=== PATIENT | male | born 1960 | race Caucasian/White ===

== ENCOUNTER 2016-08-19 06:48 | Emergency (ER) | payer BC ==
[2016-08-19 07:50] VITALS: BP 129/70
--- NOTE | 2016-08-19 14:23 | ED ---
Cassy Hernandez Matthew, scribed for Zheng Gore MD on 08/19/16 at 0746 . Complex/Multi-Sys Presentation - HPI Summary HPI Summary: A 55 y/o male presents to the ED with a right groin sensation at 05:45 this morning, which lasted for 5-10 minutes and has since resolved. The patient was eating breakfast and reading when he felt a "funny sensation" in his right groin. Associated symptoms at that time were bilateral arm numbness, flushness, and diaphoresis all of which have resolved. PMHx includes a nephrectomy and an abdominal aneurysm, which is currently being managed by his surgeon at [facility]. The patient states that he currently feels fine and his symptoms were likely due to anxiety about his aneurysm. - History Of Current Complaint Chief Complaint: EDGeneral Time Seen by Provider: 08/19/16 07:25 Hx Obtained From: Patient Onset/Duration: Sudden Onset, Lasting Minutes, Resolved Timing: Constant Severity Currently: Mild Severity Initially: Mild Character: Unable To Describe Associated Signs And Symptoms: Positive: Diaphoresis - since resolved, Other - Flush - since resolved; arm numbness - since resolved - Allergies/Home Medications Allergies/Adverse Reactions: Allergies Allergy/AdvReac Type Severity Reaction Status Date / Time Clarithromycin [From Biaxin] Allergy Unknown Verified 08/19/16 07:04 Reaction Details PMH/Surg Hx/FS Hx/Imm Hx Cardiovascular History: Reports: Hx Aneurysm - which is being managed Psychiatric History: Reports: Hx Anxiety Infectious Disease History: No Infectious Disease History: Denies: Traveled Outside the [place] in Last 30 Days - Family History Family History: FHx of aneurysm. - Social History Alcohol Use: Rare Substance Use Type: Reports: None Smoking Status (MU): Never Smoked Tobacco Review of Systems Constitutional: Negative Eyes: Negative ENT: Negative Cardiovascular: Negative Respiratory: Negative Gastrointestinal: Negative Genitourinary: Negative Musculoskeletal: Negative Skin: Negative Neurological: Negative Psychological: Normal All Other Systems Reviewed And Are Negative: Yes Physical Exam Triage Information Reviewed: Yes Vital Signs On Initial Exam: Initial Vitals Temp Pulse Resp BP Pulse Ox 97.9 F 81 16 140/80 98 08/19/16 06:50 08/19/16 06:50 08/19/16 06:50 08/19/16 06:50 08/19/16 06:50 Vital Signs Reviewed: Yes Appearance: Positive: Well-Appearing, No Pain Distress Skin: Positive: Warm, Skin Color Reflects Adequate Perfusion, Dry Head/Face: Positive: Normal Head/Face Inspection Eyes: Positive: Normal ENT: Positive: Normal ENT inspection Neck: Positive: Supple, Nontender Respiratory/Lung Sounds: Positive: Clear to Auscultation, Breath Sounds Present Cardiovascular: Positive: RRR Abdomen Description: Positive: Nontender, Soft Bowel Sounds: Positive: Present Musculoskeletal: Positive: Normal, Other - Non-tender, 2+ pulses Neurological: Positive: Normal, Sensory/Motor Intact, Alert, Oriented to Person Place, Time Psychiatric: Positive: Normal, Affect/Mood Appropriate Diagnostics - Vital Signs Vital Signs Temp Pulse Resp BP Pulse Ox 08/19/16 07:01 80 96 08/19/16 07:00 141/74 08/19/16 06:50 97.9 F 81 16 140/80 98 - Laboratory Lab Statement: Any lab studies that have been ordered have been reviewed, and results considered in the medical decision making process. Complex Multi-Symp Course/Dx Course Of Treatment: Mr. Ferro was concerned about his pre-existing aneurysm when he presented. He was symptom-free on arrival. I could not detect any abnormality on exam. He had good pulses and was nontender without deformity. - Diagnoses Provider Diagnoses: Leg pain Discharge - Discharge Plan Condition: Stable Disposition: HOME Forms: *Gen. Provider Communication Referrals: Justine Carlisle [Other] - 2 Days Additional Instructions: Please follow-up with your primary care provider in 2 days. The documentation as recorded by the Cassy shirley Matthew accurately reflects the service I personally performed and the decisions made by me, Zheng Gore MD.
== END 2016-08-19 07:54 | disposition home or self-care (01) ==
LOC: ED 06:48
DX: M79.604 Pain in right leg (principal); R61 Generalized hyperhidrosis; R20.0 Anesthesia of skin
CPT/HCPCS: 99282